=== PATIENT | female | born 1980 | race Caucasian/White ===

== ENCOUNTER → 2018-02-11 19:34 | Outpatient (CLI) | payer BC ==
[2015-03-15 06:08] VITALS: BMI 39.1
[~2018-02-11 19:34] MED LIST: BUSPAR10 MG PO; HYDROCODON-ACE1 EAC7 PO; IMITREX100 MG PO; PRILOSEC10 MG PO; ZANAFLEX2 M1 PO
== END | disposition home or self-care (01) ==
LOC: D.MAMMO 14:30
DX: N64.4 Mastodynia (principal)